=== PATIENT | male | born 1955 ===

== ENCOUNTER 2016-03-03 16:08 | Inpatient (IN) | payer BC ==
[2016-03-03 18:12] LABS: Glucose,Whole Blood 139 mg/dL (75-99)
[2016-03-03] MEDS ORDERED: NALOXONE 0.4 MG/ML 1 ML VIAL IV PRN (18:28)
[2016-03-03] MEDS ORDERED: ONDANSETRON 4 MG/2 ML VIAL IVP PRN (18:28)
[2016-03-03] MEDS ORDERED: METOCLOPRAMIDE 5 MG/ML 2 ML VIAL IVP PRN (18:28)
--- NOTE | 2016-03-03 18:35 | P.GSHP ---
History of Present Illness H&P Date: 03/03/16 Chief Complaint: Gallstone pancreatitis CHIEF COMPLAINT: Gallstone pancreatitis. HISTORY OF PRESENT ILLNESS: Margarito Crespo is a very pleasant 60-year-old gentleman who presents as transfer from [facility] in [place], [place] secondary to gallstone pancreatitis. He has history of previous myocardial infarction including cardiac stent placement. He also has a personal history of diabetes. He presents with severe epigastric abdominal pain which radiates to his back. Chemistries are consistent with gallstone pancreatitis. He also reports a strong family history of gallbladder disease in both his parents as well. Upon his initial presentation at [facility] , his white count was elevated at 9.5. His blood sugar glucose was normal at 81. His amylase was elevated at 113 and his lipase was elevated at 458. His hemoglobin A1c was moderately elevated at 11.9. Given his presentation of likely gallstone pancreatitis, general surgery has been asked for further evaluation and management. PAST MEDICAL HISTORY: 1. Depression 2. Myocardial infarction, Feb 2015. 3. Hypertensive cardiomyopathy 4. Diabetes mellitus type 2, insulin-dependent. 5. Restless leg syndrome. 6. Osteoarthritis. 7. Hypercholesterolemia. PAST SURGICAL HISTORY: 1. Cardiac catheterization with replacement of stents one year ago, February 2015 2. Corrective left foot surgery 3. Tonsillectomy and adenoidectomy 4. Shoulder surgery 5. Penile implant. He denies any abdominal surgery. MEDICATIONS: 1. Humalog 14 units t.i.d. 2. Lantus 80 units, 3. Lipitor 40 mg daily 4. Lopressor 25 mg b.i.d. 5. Nitrostat 0.4 mg as needed 6. Plavix 75 mg daily (He has not taken this medication over 2 weeks. ) 7. Requip 0.25 mg daily 8. Aspirin 81 mg daily, (He has not taken this medication over 2 weeks. ) 9. Lisinopril 2.5 mg daily 10. Metformin 500 mg b.i.d. 11. Sertraline 150 mg daily. ALLERGIES: PENICILLIN. SOCIAL HISTORY: He is . No active tobacco use. He is a former tobacco user. FAMILY HISTORY: Pertinent for gallbladder disease in both his parents. Also reports heart disease. Alzheimer's runs in his family. Father had cancer and diabetes. REVIEW OF SYSTEMS: CONSTITUTIONAL: He is at least 50+ pounds overweight. No reports of fever or chills. HEENT: No problems with vision or hearing. No dysphagia. ENDOCRINE: History of diabetes mellitus type 2, insulin dependent. No report of thyroid disorder. RESPIRATORY: Denies any dyspnea on exertion. No recent pneumonia. CARDIOVASCULAR: History of myocardial infarction with cardiac catheterization and placement of stent 02/2015. No reports of recent chest pain. GASTROINTESTINAL: Has fatty food intolerance including gastroesophageal reflux disease. MUSCULOSKELETAL: Has diffuse osteoarthritis HEMATOLOGIC: He is on antiplatelet therapy Plavix. Reports easy bruising and bleeding from Plavix and aspirin therapy. He is personally discontinued this therapy in 2 weeks. NEUROLOGICAL: No reports of stroke or seizure disorders. PSYCHIATRIC: History of depression without suicidal ideation. PHYSICAL EXAMINATION: CONSTITUTIONAL: Patient is a well-developed, pleasant male in no acute distress. VITAL SIGNS: Temperature 97.5, pulse 60, respirations 16, blood pressure 123/76, 95% oxygen saturation. HEENT: No scleral icterus. Oral mucosa is moist. Extraocular muscles intact. NECK: Supple, without lymphadenopathy. CARDIOVASCULAR: Heart regular rate and rhythm. RESPIRATORY/CHEST: No labored respirations with equal bilateral excursion. GASTROINTESTINAL/ABDOMINAL: Abdomen mild tenderness along the epigastrium. No peritonitis. Reducible one 1-cm umbilical hernia. No abdominal scars noted. MUSCULOSKELETAL: No clubbing, cyanosis or edema. NEUROLOGICAL: No focal or lateralization signs. Cranial nerves 2-12 are grossly within normal limits. PSYCHIATRIC: Alert and orientated x3. Appropriate affect. LABS FROM [facility]: White count normal at 6.9, hemoglobin normal at 13.4, MCH and MCHC low at 27.2 and 32.4 respectively, PT was slightly elevated at 12.1, INR normal at 1.1, urine analysis positive for glucose and negative for blood. Electrolytes: sodium normal at 140, potassium normal at 4.6, BUN elevated at 25, creatinine elevated at 1.6, glucose elevated at 172, AST low at 15, alkaline phosphatase and ALT were within normal limits. Total bilirubin normal at 0.7. Hemoglobin A1c elevated at 12.2. Mean average glucose of 306. Lipase reduced from 458 down to 105. Cholesterol results were all within normal limits. Triglycerides were 59. STUDIES: Ultrasound at [facility] reviewed demonstrating no large common bile duct stones. IMPRESSION: 1. Clinical history consistent with pancreatitis. 2. Family history of gallbladder disease. 3. Clinical history highly suspicious for cholelithiasis, symptomatic. 4. Coronary artery disease with previous history of cardiac stent placement. 5. Insulin dependent diabetes mellitus type 2, poorly controlled with renal nephropathy. 6. Renal insufficiency secondary to diabetes, stage 2/3. 7. Epigastric abdominal pain. 8. History of depression. PLAN: 1. I reviewed his medications whereby he has discontinued both Plavix and aspirin in 2 weeks. Benefits risks of surgical intervention with a laparoscopic cholecystectomy possible open technique were reviewed in detail with him and his for which they demonstrated understanding. 2. Pending the results of his chemistries, may defer GI consultation for ERCP. 3. He has history of poorly controlled diabetes, recommend diabetes education and sliding-scale insulin while inpatient. 4. He has BUN and creatinine of 25 and 1.6 respectively which is new as of . With the severity of his diabetes, also recommend nephrology consultation. 5. IV fluid hydration. 6. The care plan was carefully discussed with the patient and his for which they had agreed with proceeding with surgery as stated. 7. Inpatient hospitalization anticipated for 2 nights or greater. 8. DVT prophylaxis. 9. Antibiotic prophylaxis. Past Medical History - Past Family History Mother Family Medical History: Dementia Additional Family Medical History / Comment(s): PACEMAKER Father Family Medical History: Cancer, Dementia, Diabetes Mellitus, Prostate Disorder Additional Family Medical History / Comment(s): PROSTATE CANCER, HEART PROBLEMS Medications and Allergies Home Medications Medication Instructions Recorded Confirmed Type Aspirin EC [Ecotrin Low Dose] 81 mg PO DAILY 03/03/16 03/03/16 History Insulin Glargine,Hum.rec.anlog 12 unit SQ AC-TID 03/03/16 03/03/16 History [Lantus Solostar] Insulin Lispro [humaLOG Kwikpen] 80 unit SQ HS 03/03/16 03/03/16 History Lisinopril [Zestril] 2.5 mg PO DAILY 03/03/16 03/03/16 History Metoprolol Tartrate [Lopressor] 12.5 mg PO BID 03/03/16 03/03/16 History Nitroglycerin Sl Tabs [Nitrostat] 0.4 mg SUBLINGUAL Q5M PRN 03/03/16 03/03/16 History Sertraline [Zoloft] 150 mg PO DAILY 03/03/16 03/03/16 History metFORMIN HCL [Glucophage] 1,000 mg PO AC-BRKFST 03/03/16 03/03/16 History Allergies Allergy/AdvReac Type Severity Reaction Status Date / Time Penicillins Allergy Unknown Verified 03/03/16 18:36 Childhood Surgical - Exam Vital Signs Temp Pulse Resp BP Pulse Ox 97.5 F L 60 16 123/76 95 03/03/16 18:04 03/03/16 18:04 03/03/16 18:04 03/03/16 18:04 03/03/16 18:04 GENERAL: Well developed and in no acute distress. Pleasant. HEENT: No sclera icterus. Extraocular movements grossly intact. Moist buccal mucosa. Head is atraumatic, normocephalic. Hears conversational speech. No nasal drainage. NECK: Supple without lymphadenopathy. No JV distention. CHEST: Non-labored respirations and equal bilateral excursions. CARDIOVASCULAR: Regular rate and rhythm. Palpable 2+ radial pulses. ABDOMEN: Soft. Nondistended. Minimal epigastric and right upper quadrant tenderness. MUSCULOSKELETAL: No clubbing, cyanosis or edema. NEUROLOGIC: No focal or lateralizing signs. PSYCH: Appropriate affect. Alert and oriented to person, place and time. Results - Labs 03/03/16 18:54 03/03/16 18:54 Abnormal Lab Results - Last 24 Hours (Table) 03/03/16 Range/Units 18:09 POC Glucose (mg/dL) 139 H (75-99) mg/dL
[2016-03-03] MEDS ORDERED: ACETAMINOPHEN IV (For NPO) 1,000 MG in EMPTY BAG 1 BAG IVPB ONE (19:00)
[2016-03-03 19:08] LABS: Basophils # (A) 0.1 k/uL (0-0.2); Basophils % (A) 1 %; CH 27.1; CHCM 31.6; Eosinophils # (A) 0.2 k/uL (0-0.7); Eosinophils % (A) 3 %; HDW 2.62; Hypochromasia Slight; Luc # (Auto) 0.11; Luc % (Auto) 2; Lymphocytes # (A) 2.1 k/uL (1.0-4.8); Lymphocytes % (A) 29 %; MCH 26.8 pg (25.0-35.0); MCHC 31.1 g/dL (31.0-37.0); MCV 86.1 fL (80.0-100.0); Mean Platelet Volume 6.4; Monocytes # (A) 0.4 k/uL (0-1.0); Monocytes % (A) 6 %; Neutrophils # (A) 4.4 k/uL (1.3-7.7); Neutrophils % (A) 61 %; RBC 5.23 m/uL (4.30-5.90); RDW 14.8 % (11.5-15.5); WBC 7.3 k/uL (3.8-10.6)
[2016-03-03 19:27] LABS: Potassium 4.7 mmol/L (3.5-5.1); Total Bilirubin 0.6 mg/dL (0.2-1.3); Total Protein 6.6 g/dL (6.3-8.2)
[2016-03-03 23:59] LABS: Hemoglobin A1C 11.6 % (4.2-6.1)
[2016-03-04] MEDS: INSULIN LISPRO (humaLOG) 300 UNIT/3 ML VIAL SQ SCH ×3 (00:27→12:06)
[2016-03-04 00:28] LABS: Glucose,Whole Blood 194 mg/dL (75-99)
[2016-03-04] MEDS: HEPARIN SODIUM,PORCINE 5,000 UNIT/ML 1 ML VIAL SQ SCH ×4 (00:29→17:00)
[2016-03-04 06:04] LABS: Glucose,Whole Blood 145 mg/dL (75-99)
[2016-03-04 07:25] LABS: Glucose,Whole Blood 145 mg/dL (75-99)
[2016-03-04 08:59] LABS: INR 1.2 (<1.1); Prothrombin Time 11.5 sec (9.0-12.0)
[2016-03-04] MEDS ORDERED: SODIUM CHLORIDE 0.9% 1,000 ML IV SCH ×2 (09:00→17:45)
[2016-03-04 10:17] VITALS: BMI 36.3
--- NOTE | 2016-03-04 11:23 | US ---
EXAMINATION TYPE: US kidneys/renal and bladder DATE OF EXAM: 03/04/2016 11:09 AM COMPARISON: NONE CLINICAL HISTORY: vinay. EXAM MEASUREMENTS: Right Kidney: 11.1 x 5.5 x 4.2 cm Left Kidney: 11.2 x 5.2 x 5.1 cm Findings: Right Kidney: lobular surface texture Left Kidney: No hydronephrosis or masses seen Bladder: there appears to be two fluid structures midline in area of bladder, there is overlying hina l partially obstructing view IMPRESSION: No hydronephrosis or nephrolithiasis. There appear to be fluid structures anterior to the bladder which could potentially be related to ove rlying dilated bowel loops correlate with pelvic CT as clinically warranted.
[2016-03-04 11:44] LABS: Appearance,Urine Clear (Clear); Bilirubin,Urine Negative (Negative); Glucose,Urine (UA) Trace (Negative); Ketones,Urine Negative (Negative); Leukocyte Esterase,Urine Negative (Negative); Nitrite,Urine Negative (Negative); PH, Urine 5.5 (5.0-8.0); Protein,Urine Negative (Negative); UA Billing (MACRO vs. MICRO) CHEM; Urobilinogen,Urine <2.0 mg/dL (<2.0)
[2016-03-04 12:05] LABS: Glucose,Whole Blood 124 mg/dL (75-99)
--- NOTE | 2016-03-04 12:17 | P.NPCON ---
History of Present Illness - Reason for Consult acute renal failure - History of Present Illness Reason for consultation: Acute kidney injury History of present illness: Patient is a 60-year-old male seen in renal consultation for acute kidney injury. Unclear as to what his baseline renal function is. Creatinine is 1.5 to as of yesterday. Patient denies any prior history of kidney disease. He presented to the hospital with abdominal pain that started about a week ago. He's also been having intermittent nausea and vomiting along with loose bowel movements since then. His oral intake has been minimal. He scheduled for cholecystectomy today. He denies any chest pain or shortness of breath. No lower extremity edema. Admits to good urine output. No hematuria or dysuria. Currently receiving IV hydration. His father did have chronic kidney disease was disease prior to starting dialysis. Unclear as to etiology. Denies use of NSAIDs at home. No other complaints at this time. Vital signs are stable. General: The patient appeared well nourished and normally developed. HEENT: Head exam is unremarkable. Neck is without jugular venous distension. LUNGS: Lungs are clear to auscultation and percussion. Breath sounds decreased. HEART: Rate and Rhythm are regular. First and second heart sounds normal. No murmurs, rubs or gallops. ABDOMEN: Abdominal exam reveals normal bowel sounds. Non-tender and non- distended. No evidence of peritonitis. EXTREMITITES: No clubbing, cyanosis, or edema. Past Medical History Past Medical History: Diabetes Mellitus, Hyperlipidemia, Hypertension, Myocardial Infarction ([place]), Sleep Apnea/CPAP/BIPAP Additional Past Medical History / Comment(s): NOT TAKING ANY MEDS FOR CHOLESTEROL, MIGRAINES IN PAST Last Myocardial Infarction Date:: 2015 History of Any Multi-Drug Resistant Organisms: None Reported Past Surgical History: Heart Catheterization With Stent, Tonsillectomy Additional Past Surgical History / Comment(s): PENILE IMPLANT, LT FOOT 3RD TOE CORRECTIVE SX, LT SHOULDER SX, Additional Past Anesthesia/Blood Transfusion Reaction / Comment(s): CLAUSTERPHOBIA Date of Last Stent Placement:: UNK Past Psychological History: No Psychological Hx Reported Smoking Status: Former smoker Past Alcohol Use History: None Reported Additional Past Alcohol Use History / Comment(s): STARTED SMOKING AGE 16, SMOKED 2.5 PPD, QUIT AGE 41 Past Drug Use History: Marijuana Additional Drug Use History / Comment(s): IN THE 1970S SED MARIJUANA - Past Family History Mother Family Medical History: Dementia Additional Family Medical History / Comment(s): PACEMAKER Father Family Medical History: Cancer, Dementia, Diabetes Mellitus, Prostate Disorder Additional Family Medical History / Comment(s): PROSTATE CANCER, HEART PROBLEMS Medications and Allergies Home Medications Medication Instructions Recorded Confirmed Type Aspirin EC [Ecotrin Low Dose] 81 mg PO DAILY 03/03/16 03/03/16 History Insulin Glargine,Hum.rec.anlog 12 unit SQ AC-TID 03/03/16 03/03/16 History [Lantus Solostar] Insulin Lispro [humaLOG Kwikpen] 80 unit SQ HS 03/03/16 03/03/16 History Lisinopril [Zestril] 2.5 mg PO DAILY 03/03/16 03/03/16 History Metoprolol Tartrate [Lopressor] 12.5 mg PO BID 03/03/16 03/03/16 History Nitroglycerin Sl Tabs [Nitrostat] 0.4 mg SUBLINGUAL Q5M PRN 03/03/16 03/03/16 History Sertraline [Zoloft] 150 mg PO DAILY 03/03/16 03/03/16 History metFORMIN HCL [Glucophage] 1,000 mg PO AC-BRKFST 03/03/16 03/03/16 History Allergies Allergy/AdvReac Type Severity Reaction Status Date / Time Penicillins Allergy Unknown Verified 03/03/16 18:36 Childhood Physical Exam Vitals: Vital Signs Temp Pulse Resp BP Pulse Ox 03/04/16 09:25 62 17 03/04/16 07:00 97.2 F L 62 17 106/64 96 03/04/16 02:00 97.6 F 63 18 105/64 94 L 03/03/16 20:00 98 F 57 L 18 138/78 96 03/03/16 18:04 97.5 F L 60 16 123/76 95 Intake and Output 03/03/16 03/04/16 03/04/16 22:59 06:59 14:59 Intake Total 100 Balance 100 Intake: IV 100 ACETAMINOPHEN IV (For NPO 100 ) 1,000 mg In Empty Bag 1 bag @ 400 mls/hr IVPB ONCE ONE Rx#:[id number] Other: Voiding Method Toilet Toilet # Voids 1 Weight 102.058 kg 102.058 kg Patient Weight 03/05/16 06:59 Weight 102.058 kg Results - Lab Results Most recent lab results Calcium 9.0 mg/dL (8.4-10.2) 03/03/16 18:54 03/03/16 18:54 03/03/16 18:54 Assessment and Plan Plan: Assessment: #1. Nonoliguric acute kidney injury mostly prerenal in nature secondary to intravascular volume depletion from vomiting and diarrhea. Creatinine 1.52 on admission yesterday. Unclear as to what his baseline renal function is. #2. Rule out chronic kidney disease. No evidence of hydronephrosis on renal ultrasound. Urinalysis quite benign. #3. Acute pancreatitis. #4. Insulin-dependent diabetes mellitus. Plan: Continue normal saline to run at 75 mL an hour. Scheduled for cholecystectomy today. Advance diet per surgical recommendations. Avoid nephrotoxic agents and hypotensive episodes. Repeat electrolytes in the morning. I advised him to monitor his blood sugars more closely upon discharge. Goal A1c less than 7%. Thank you for the consultation. I will continue to follow the patient with you during his hospital stay.
--- NOTE | 2016-03-04 12:39 | P.HPADDEND ---
H&P Addendum H&P Addendum Date: 03/04/16 Benefits and risks of laparoscopic ostectomy was reviewed. Patient chemistries improved. We'll proceed with laparoscopic cholecystectomy possible open technique.
[2016-03-04] MEDS ORDERED: NITROGLYCERIN SL TABS 0.4 MG TAB SUBLINGUAL PRN (12:59)
[2016-03-04] MEDS: SODIUM CHLORIDE 0.9% 1,000 ML IV SCH (15:02)
[2016-03-04 15:24] VITALS: RESP 16
[2016-03-04] MEDS ORDERED: IV FLUID CONTINUATION 1,000 ML IV ONE (15:28)
[2016-03-04 15:47] LABS: Glucose,Whole Blood 111 mg/dL (75-99)
[2016-03-04] MEDS ORDERED: ONDANSETRON 4 MG/2 ML VIAL IVP ONE (15:47)
[2016-03-04] MEDS ORDERED: DEXAMETHASONE SOD PHOS (MDV) 100 MG/10 ML VIAL IV ONE (15:48)
[2016-03-04] MEDS ORDERED: ceFAZolin 2 GM in SODIUM CHLORIDE 0.9% 100 ML IVPB ONE (16:00)
[2016-03-04] MEDS ORDERED: fentaNYL (PF) 50 MCG/ML 2 ML AMP ONE (17:22)
[2016-03-04] MEDS ORDERED: GLYCOPYRROLATE 0.2 MG/ML 2 ML VIAL ONE (17:22)
[2016-03-04] MEDS ORDERED: KETOROLAC 30 MG/ML 1 ML VIAL ONE (17:22)
[2016-03-04] MEDS ORDERED: MIDAZOLAM 2 MG/2 ML VIAL ONE (17:22)
[2016-03-04] MEDS ORDERED: LIDOCAINE 1% INJ 10MG/ML (20 ML MDV) ONE (17:22)
[2016-03-04] MEDS ORDERED: NEOSTIGMINE 1 MG/ML 10 ML VIAL ONE (17:22)
[2016-03-04] MEDS ORDERED: ROCURONIUM BROMIDE 10 MG/ML 10 ML VIAL IV ONE (17:22)
[2016-03-04] MEDS ORDERED: PROPOFOL 10 MG/ML 20 ML VIAL IV ONE (17:22)
[2016-03-04] MEDS ORDERED: SUCCINYLCHOLINE CHLORIDE 100 MG/5 ML SYR IV ONE (17:22)
[2016-03-04] MEDS ORDERED: HYDROmorphone 1 MG/ML 1 ML SYRINGE IVP PRN (17:29)
[2016-03-04] MEDS ORDERED: HYDROcodone/APAP 5-325MG 1 EACH TAB PO PRN (17:29)
[2016-03-04] MEDS ORDERED: SODIUM CHLORIDE 0.9% 100 ML with ceFAZolin 2,000 MG IV ONE ×2 (17:30)
[2016-03-04] MEDS ORDERED: LACTATED RINGERS 1,000 ML IV ONE (17:32)
[2016-03-04] MEDS ORDERED: BUPIVACAIN-EPI 0.25%-1:200,000 30 ML VIAL SQ ONE ×2 (17:33→17:39)
[2016-03-04] MEDS ORDERED: ACETAMINOPHEN IV (For NPO) 1,000 MG in EMPTY BAG 1 BAG IVPB ONE (18:00)
--- NOTE | 2016-03-04 18:12 | P.OP ---
Date of Procedure: 03/04/16 Description of Procedure: SURGEON: MARGARET KERR MD MAGAZINE SUPERVISOR: None. PREOPERATIVE DIAGNOSES: 1. Chronic Cholecystitis. 2. Diabetes type 2 insulin-dependent, poorly controlled. 3. History of gallstone pancreatitis. 4. Coronary artery disease. 5. History of cardiac catheterization with placement of cardiac stents. 6. Hypertensive cardiomyopathy. 7. Obstructive sleep apnea. 8. Diabetic nephropathy with chronic kidney disease, stage II. 9. Morbid obesity. 10. Body mass index 36.3. 11. Hypercholesterolemia. 12. Fatty liver disease. 13. Hepatomegaly. POSTOPERATIVE DIAGNOSES: 1. Chronic Cholecystitis. 2. Diabetes type 2 insulin-dependent, poorly controlled. 3. History of gallstone pancreatitis. 4. Coronary artery disease. 5. History of cardiac catheterization with placement of cardiac stents. 6. Hypertensive cardiomyopathy. 7. Obstructive sleep apnea. 8. Diabetic nephropathy with chronic kidney disease, stage II. 9. Morbid obesity. 10. Body mass index 36.3. 11. Hypercholesterolemia. 12. Fatty liver disease. 13. Hepatomegaly. OPERATION: 1. Laparoscopic cholecystectomy ANESTHESIA: General with 30 mL 0.25% Marcaine with epinephrine. ESTIMATED BLOOD LOSS: 5 mL. SPECIMENS REMOVED: Gallbladder. COMPLICATIONS: None. INDICATIONS: The patient is a 60-year-old male who presents with gallstone pancreatitis. He presented as a transfer from [facility]. As his liver enzymes including pancreatitis resolved, surgical intervention was described. Surgical intervention with a laparoscopic cholecystectomy was described at length including injury to the biliary tree, bleeding, infection, need for further surgery. Informed consent was obtained. DESCRIPTION OF THE PROCEDURE: The patient was brought to the operating room, laid in supine position. After general induction, the abdomen was prepped and draped in a standard sterile fashion. Prior to incision, a timeout protocol was confirmed with surgical team regarding patient's name, procedure to be performed including preoperative medications for which he had received heparin 5000 units subcutaneously as well as bilateral SCDs for DVT prophylaxis. A transverse 5 mm incision was made above the umbilicus and off to the right of the midline. Please note the skin was localized prior to incision. A 0 degree 5-mm laparoscopic trocar entry was performed and entered into the peritoneal cavity. Diagnostic laparoscopy confirmed no injury to bowel, viscera or mesentery. The liver serosa was completely unremarkable. Next, two 5 mm trocars were placed along the right costal margin followed by a 11 mm port at the left upper quadrant. The patient was placed in steep reverse Trendelenburg position with the right side up. The gallbladder fundus was retracted over the dome of the liver. Initial attention was brought to the infundibulum which was gently retracted in the inferior lateral approach. Using a Kittner, the cystic duct including the cystic artery was carefully skeletonized. Using a large clip cell biology scientist 2 clips were placed proximally, and 2 clip was placed distally along the cystic duct and then cut. Again care was taken to avoid any injury to the biliary tree as the common bile duct was clearly visualized during this portion of dissection. Next, the cystic artery was clipped twice proximally, once distally and then cauterized. The cystic structures were divided using a Sonicision. Electro-Bovie cautery was used to remove the gallbladder from the hepatic fossa without decompression of the gallbladder. Hemostasis was checked and found to be adequate. The gallbladder was removed from the abdominal cavity using an Endo Catch bag and passed off for further pathological analysis. All instruments and pneumoperitoneum were removed from the abdominal cavity. The fascial defect was less than 8 mm for the 11-mm port site. The rest of incisions were reapproximated using 4-0 Monocryl in an interrupted subcuticular fashion. A total of 30 mL of 0.25% Marcaine with epinephrine was infiltrated to all wounds for postop analgesia. Dermabond was applied to the skin. At the end of the procedure, needle, sponge, and instrument count was verified correct by surgical appliances salesperson. The patient had tolerated the procedure well and was taken to postanesthesia care unit in stable condition. Intraoperative films were discussed and reviewed with the patient's family who were pleased with the level of care. FINDINGS: 1. Chronic cholecystitis. 2. Umbilical hernia, 1 cm reducible. 3. No inguinal hernias identified. 4. Fatty liver disease with hepatomegaly.
[2016-03-04 18:13] VITALS: TEMP 98.2
[2016-03-04 18:22] LABS: Glucose,Whole Blood 197 mg/dL (75-99)
--- NOTE | 2016-03-04 18:30 | P.DS ---
Providers Date of admission: 03/03/16 17:54 Expected date of discharge: 03/04/16 Attending physician: Rosa Elena Ann Consults: 03/04/16 08:21 Consult Physician Routine Consulting Provider: Savanna Bonilla Consult Reason/Comments: Diabetic Renal insufficiency Do you want consulting provider notified?: Yes Primary care physician: Jef Han - Discharge Diagnosis(es) (1) Gallstone pancreatitis Current Visit: Yes Status: Acute (2) Hypercholesteremia Current Visit: Yes Status: Chronic (3) Coronary artery disease Current Visit: Yes Status: Chronic (4) S/P cardiac catheterization Current Visit: Yes Status: Chronic (5) Morbid obesity Current Visit: Yes Status: Chronic (6) BMI 36.0-36.9,adult Current Visit: Yes Status: Chronic (7) Type 2 diabetes mellitus with nephropathy Current Visit: Yes Status: Chronic (8) Diabetes type 2, uncontrolled Current Visit: Yes Status: Chronic (9) Hypertensive cardiomyopathy Current Visit: Yes Status: Chronic (10) Sleep apnea, obstructive Current Visit: Yes Status: Chronic Hospital Course: POSTOPERATIVE DIAGNOSES: 1. Chronic Cholecystitis. 2. Diabetes type 2 insulin-dependent, poorly controlled. 3. History of gallstone pancreatitis. 4. Coronary artery disease. 5. History of cardiac catheterization with placement of cardiac stents. 6. Hypertensive cardiomyopathy. 7. Obstructive sleep apnea. 8. Diabetic nephropathy with chronic kidney disease, stage II. 9. Morbid obesity. 10. Body mass index 36.3. 11. Hypercholesterolemia. 12. Fatty liver disease. 13. Hepatomegaly. COURSE: The patient is a 60-year-old male who presents with gallstone pancreatitis. He presented as a transfer from [facility]. As his liver enzymes including pancreatitis resolved, surgical intervention was described. During his hospitalization, diabetic education was performed. Additionally nephrology consultation was obtained secondary to renal insufficiency. Postoperatively, he tolerated diet. His pain was well-controlled. Discharge instructions were reviewed with him and his family. Follow-up in the office tomorrow. Pertinent Studies: Ultrasound of the kidney demonstrated no abnormalities. Procedures: OPERATION: 1. Laparoscopic cholecystectomy Patient Condition at Discharge: Stable Plan - Discharge Summary New Discharge Prescriptions: Hydrocodone/Acetaminophen [[place] 5-325] 1 - 2 each PO Q6HR PRN #30 tab PRN Reason: Pain Discharge Medication List Aspirin EC [Ecotrin Low Dose] 81 mg PO DAILY 03/03/16 [History] Insulin Glargine,Hum.rec.anlog [Lantus Solostar] 12 unit SQ AC-TID 03/03/16 [ History] Insulin Lispro [humaLOG Kwikpen] 80 unit SQ HS 03/03/16 [History] Lisinopril [Zestril] 2.5 mg PO DAILY 03/03/16 [History] Metoprolol Tartrate [Lopressor] 12.5 mg PO BID 03/03/16 [History] Nitroglycerin Sl Tabs [Nitrostat] 0.4 mg SUBLINGUAL Q5M PRN 03/03/16 [History] Sertraline [Zoloft] 150 mg PO DAILY 03/03/16 [History] metFORMIN HCL [Glucophage] 1,000 mg PO AC-BRKFST 03/03/16 [History] Hydrocodone/Acetaminophen [[place] 5-325] 1 - 2 each PO Q6HR PRN #30 tab 03/04/16 [Rx] Follow up Appointment(s)/Referral(s): Rosa Elena Ann MD [STAFF PHYSICIAN] - 03/05/16 10:15 am ([place] [facility]) Patient Instructions/Handouts: *Surgery [facility] - Laparoscopic Cholecystectomy Discharge Instructions, Low Fat Diet (DC) Activity/Diet/Wound Care/Special Instructions: No lifting over 4 pounds in 2 weeks. Please follow-up at [place] office tomorrow. Low-fat diet. May shower tomorrow. Discharge Disposition: HOME SELF-CARE
[2016-03-04 18:45] VITALS: BP 130/69; PULSE 78
[2016-03-04] MEDS ORDERED: METOPROLOL TARTRATE 12.5 MG TAB PO SCH (21:00)
[2016-03-05] MEDS ORDERED: PANTOPRAZOLE 40 MG/10 ML VIAL IV SCH (09:00)
[2016-03-05] MEDS ORDERED: SERTRALINE 50 MG TAB PO SCH (09:00)
== END 2016-03-04 20:11 | disposition home or self-care (01) | DRG 418 ==
LOC: 3SUR 17:54
PROVIDERS: ADMIT Surgery Plastic and Reconstructive Surgery; ATTEND Surgery Plastic and Reconstructive Surgery
PROC: 0FT44ZZ Resection of Gallbladder, Percutaneous Endoscopic Approach (ICD-10-PCS; principal; 2016-03-04 07:30)
DX: K85.10 Biliary acute pancreatitis without necrosis or infection (principal); K80.10 Calculus of gallbladder with chronic cholecystitis without obstruction; N17.9 Acute kidney failure, unspecified; I43 Cardiomyopathy in diseases classified elsewhere; E11.21 Type 2 diabetes mellitus with diabetic nephropathy; I13.10 Hypertensive heart and chronic kidney disease without heart failure, with stage 1 through stage 4 chronic kidney disease, or unspecified chronic kidney disease; E11.65 Type 2 diabetes mellitus with hyperglycemia; E66.01 Morbid (severe) obesity due to excess calories; E11.22 Type 2 diabetes mellitus with diabetic chronic kidney disease; E78.00 Pure hypercholesterolemia, unspecified; E78.5 Hyperlipidemia, unspecified; E86.9 Volume depletion, unspecified; G25.81 Restless legs syndrome; G47.33 Obstructive sleep apnea (adult) (pediatric); I25.10 Atherosclerotic heart disease of native coronary artery without angina pectoris; I25.2 Old myocardial infarction; K42.9 Umbilical hernia without obstruction or gangrene; K76.0 Fatty (change of) liver, not elsewhere classified; M19.90 Unspecified osteoarthritis, unspecified site; N18.2 Chronic kidney disease, stage 2 (mild); F32.9 Major depressive disorder, single episode, unspecified; R16.0 Hepatomegaly, not elsewhere classified; F40.240 Claustrophobia; G43.909 Migraine, unspecified, not intractable, without status migrainosus; Z68.36 Body mass index [BMI] 36.0-36.9, adult; Z87.891 Personal history of nicotine dependence; Z95.5 Presence of coronary angioplasty implant and graft; Z79.4 Long term (current) use of insulin; Z79.02 Long term (current) use of antithrombotics/antiplatelets; Z79.82 Long term (current) use of aspirin; Z79.899 Other long term (current) drug therapy; Z88.0 Allergy status to penicillin
CPT/HCPCS: 76770; 80053; 81003; 83036; 83690; 85025; 85610; 86850; 86900; 86901; 88304; 93005

== ENCOUNTER 2016-03-10 11:47 | Inpatient (IN) | payer BC ==
--- NOTE | 2016-03-10 13:31 | ED ---
Abdominal Pain HPI - General Chief Complaint: Abdominal Pain Stated Complaint: abdominal Pain Time Seen by Provider: 03/10/16 13:08 Source: EMS, RN notes reviewed Mode of arrival: EMS - History of Present Illness Initial Comments: Patient is a 61-year-old man, transferred here from [facility], he had gone there earlier today for right upper quadrant abdominal pain. The patient relates that 6 days ago he had laparoscopic cholecystectomy performed here by Dr. Pandya. He states that the surgery seemed to go well and he was doing well until this morning. He states that he had only used his prescription analgesics for 2 days following the surgery. The patient states that he woke this morning with the pain, it was in the right upper quadrant and a little in the right flank. It is a sharp and aching pain, constant, and is worse if he presses over it. He has not noted any relieving factors other than the medication he was given at the other hospital. The patient denies associated symptoms, including no fevers or chills, nausea or vomiting, change in urination, or change in bowel movements. MD Complaint: abdominal pain Onset/Timin -: hour(s) Location: RUQ, R flank Severity: severe Quality: aching Consistency: constant Improves With: medication Worsens With: nothing Context: recent surgery/procedure Associated Symptoms: denies other symptoms - Related Data Home Medications Medication Instructions Recorded Confirmed Aspirin EC [Ecotrin Low Dose] 81 mg PO DAILY 03/03/16 03/10/16 Insulin Glargine,Hum.rec.anlog 12 unit SQ AC-TID 03/03/16 03/10/16 [Lantus Solostar] Insulin Lispro [humaLOG Kwikpen] 80 unit SQ HS 03/03/16 03/10/16 Lisinopril [Zestril] 2.5 mg PO DAILY 03/03/16 03/10/16 Metoprolol Tartrate [Lopressor] 12.5 mg PO BID 03/03/16 03/10/16 Nitroglycerin Sl Tabs [Nitrostat] 0.4 mg SUBLINGUAL Q5M PRN 03/03/16 03/10/16 Sertraline [Zoloft] 150 mg PO DAILY 03/03/16 03/10/16 metFORMIN HCL [Glucophage] 1,000 mg PO AC-BRKFST 03/03/16 03/10/16 Hydrocodone/Acetaminophen [[place] 1 - 2 tab PO Q6HR PRN 03/10/16 03/10/16 5-325] Allergies Allergy/AdvReac Type Severity Reaction Status Date / Time Penicillins Allergy Unknown Verified 03/10/16 12:13 Childhood Review of Systems ROS Statement: Those systems with pertinent positive or pertinent negative responses have been documented in the HPI. ROS Other: All systems not noted in ROS Statement are negative. Constitutional: Denies: fever, chills Respiratory: Denies: cough, dyspnea Cardiovascular: Denies: chest pain, edema Gastrointestinal: Reports: abdominal pain. Denies: nausea, vomiting, diarrhea, constipation, melena, hematochezia Genitourinary: Denies: dysuria, hematuria Musculoskeletal: Denies: back pain Skin: Denies: rash Neurological: Denies: headache Past Medical History Past Medical History: Diabetes Mellitus, Hyperlipidemia, Hypertension, Myocardial Infarction ([place]), Sleep Apnea/CPAP/BIPAP Additional Past Medical History / Comment(s): NOT TAKING ANY MEDS FOR CHOLESTEROL, MIGRAINES IN PAST Last Myocardial Infarction Date:: 2015 History of Any Multi-Drug Resistant Organisms: None Reported Past Surgical History: Heart Catheterization With Stent, Tonsillectomy Additional Past Surgical History / Comment(s): PENILE IMPLANT, LT FOOT 3RD TOE CORRECTIVE SX, LT SHOULDER SX, Additional Past Anesthesia/Blood Transfusion Reaction / Comment(s): CLAUSTERPHOBIA Date of Last Stent Placement:: UNK Past Psychological History: No Psychological Hx Reported Smoking Status: Former smoker Past Alcohol Use History: None Reported Additional Past Alcohol Use History / Comment(s): STARTED SMOKING AGE 16, SMOKED 2.5 PPD, QUIT AGE 41 Past Drug Use History: Marijuana Additional Drug Use History / Comment(s): IN THE 1970'S SED MARIJUANA - Past Family History Mother Family Medical History: Dementia Additional Family Medical History / Comment(s): PACEMAKER Father Family Medical History: Cancer, Dementia, Diabetes Mellitus, Prostate Disorder Additional Family Medical History / Comment(s): PROSTATE CANCER, HEART PROBLEMS General Exam General appearance: alert, in no apparent distress, obese Head exam: Present: atraumatic, normocephalic Eye exam: Present: normal appearance. Absent: scleral icterus, conjunctival injection ENT exam: Present: normal oropharynx Neck exam: Present: normal inspection Respiratory exam: Present: normal lung sounds bilaterally. Absent: respiratory distress, wheezes, rales, rhonchi, stridor Cardiovascular Exam: Present: regular rate, normal rhythm, normal heart sounds. Absent: systolic murmur, diastolic murmur, rubs, gallop GI/Abdominal exam: Present: soft, tenderness (There is mild right upper quadrant tenderness without rebound or guarding), normal bowel sounds, other ( The patient's surgical incisions have a normal appearance. They are clean dry and intact without any abnormal erythema or warmth.). Absent: distended, guarding, rebound, rigid, mass, pulsatile mass, hernia Extremities exam: Present: normal inspection, normal capillary refill. Absent: pedal edema, calf tenderness Back exam: Present: normal inspection. Absent: CVA tenderness (R), CVA tenderness (L) Neurological exam: Present: alert Skin exam: Present: warm, dry, intact, normal color. Absent: rash Course Vital Signs 03/10/16 03/10/16 11:55 14:33 Temperature 97.6 F 97.2 F L Pulse Rate 80 65 Respiratory 16 16 Rate Blood Pressure 103/60 112/56 O2 Sat by Pulse 95 94 L Oximetry Medical Decision Making - Lab Data Result diagrams: 03/10/16 14:10 03/10/16 14:10 Lab Results 03/10/16 03/10/16 03/10/16 Range/Units 14:10 14:10 14:17 WBC 8.2 (3.8-10.6) k/uL RBC 5.06 (4.30-5.90) m/uL Hgb 13.7 (13.0-17.5) gm/dL Hct 43.1 (39.0-53.0) % MCV 85.2 (80.0-100.0) fL MCH 27.1 (25.0-35.0) pg MCHC 31.8 (31.0-37.0) g/dL RDW 14.8 (11.5-15.5) % Plt Count 242 (150-450) k/uL Neutrophils % 55 % Lymphocytes % 33 % Monocytes % 8 % Eosinophils % 1 % Basophils % 1 % Neutrophils # 4.5 (1.3-7.7) k/uL Lymphocytes # 2.7 (1.0-4.8) k/uL Monocytes # 0.7 (0-1.0) k/uL Eosinophils # 0.1 (0-0.7) k/uL Basophils # 0.1 (0-0.2) k/uL Sodium 144 (137-145) mmol/L Potassium 4.5 (3.5-5.1) mmol/L Chloride 110 H (98-107) mmol/L Carbon Dioxide 23 (22-30) mmol/L Anion Gap 11 mmol/L BUN 27 H (9-20) mg/dL Creatinine 1.50 H (0.66-1.25) mg/dL Est GFR (MDRD) Af Amer 58 (>60 ml/min/1.73 sqM) Est GFR (MDRD) Non-Af 48 (>60 ml/min/1.73 sqM) Glucose 67 L (74-99) mg/dL Calcium 8.9 (8.4-10.2) mg/dL Total Bilirubin 0.5 (0.2-1.3) mg/dL AST 141 H (17-59) U/L ALT 113 H (21-72) U/L Alkaline Phosphatase 87 (38-126) U/L Total Protein 6.5 (6.3-8.2) g/dL Albumin 3.7 (3.5-5.0) g/dL Amylase 48 (30-110) U/L Lipase 59 (23-300) U/L Urine Color Yellow Urine Appearance Clear (Clear) Urine pH 5.0 (5.0-8.0) Ur Specific [place] 1.011 (1.001-1.035) Urine Protein Negative (Negative) Urine Glucose (UA) Negative (Negative) Urine Ketones Negative (Negative) Urine Blood Negative (Negative) Urine Nitrate Negative (Negative) Urine Bilirubin Negative (Negative) Urine Urobilinogen <2.0 (<2.0) mg/dL Ur Leukocyte Esterase Negative (Negative) Disposition Clinical Impression: Abdominal pain, Elevated transaminase level Disposition: ADMITTED IP TO THIS HOSP Condition: Good
[2016-03-10] MEDS ORDERED: HYDROmorphone 1 MG/ML 1 ML SYRINGE IVP STA (13:34)
[2016-03-10 14:30] LABS: Basophils # (A) 0.1 k/uL (0-0.2); Basophils % (A) 1 %; CH 27.5; CHCM 32.5; Eosinophils # (A) 0.1 k/uL (0-0.7); Eosinophils % (A) 1 %; HCT 43.1 % (39.0-53.0); HDW 2.66; HGB 13.7 gm/dL (13.0-17.5); Luc # (Auto) 0.14; Luc % (Auto) 2; Lymphocytes # (A) 2.7 k/uL (1.0-4.8); Lymphocytes % (A) 33 %; MCH 27.1 pg (25.0-35.0); MCHC 31.8 g/dL (31.0-37.0); MCV 85.2 fL (80.0-100.0); Mean Platelet Volume 7.9; Monocytes # (A) 0.7 k/uL (0-1.0); Monocytes % (A) 8 %; Neutrophils # (A) 4.5 k/uL (1.3-7.7); Neutrophils % (A) 55 %; RBC 5.06 m/uL (4.30-5.90); RDW 14.8 % (11.5-15.5); WBC 8.2 k/uL (3.8-10.6)
[2016-03-10 14:45] LABS: Calcium 8.9 mg/dL (8.4-10.2); Potassium 4.5 mmol/L (3.5-5.1); Total Bilirubin 0.5 mg/dL (0.2-1.3); Total Protein 6.5 g/dL (6.3-8.2)
[2016-03-10 15:04] LABS: Appearance,Urine Clear (Clear); Bilirubin,Urine Negative (Negative); Glucose,Urine (UA) Negative (Negative); Ketones,Urine Negative (Negative); Leukocyte Esterase,Urine Negative (Negative); Nitrite,Urine Negative (Negative); Protein,Urine Negative (Negative); Specific Gravity,Urine 1.011 (1.001-1.035); UA Billing (MACRO vs. MICRO) CHEM; Urobilinogen,Urine <2.0 mg/dL (<2.0)
[2016-03-10] MEDS ORDERED: NITROGLYCERIN SL TABS 0.4 MG TAB SUBLINGUAL PRN (15:41)
--- NOTE | 2016-03-10 15:44 | P.PN ---
Progress Note - Text Patient seen and evaluated. Please see full dictated H&P. Patient has new right upper quadrant abdominal pain which he states is related to surgery. Reports his pain started early this morning at 4:30. He narcotics to control this pain. Recommend admission for evaluation for retained gallstone versus biloma.
[2016-03-10] MEDS ORDERED: SODIUM CHLORIDE 0.9% 1,000 ML IV STA (16:17)
--- NOTE | 2016-03-10 18:08 | P.GSHP ---
History of Present Illness H&P Date: 03/10/16 Chief Complaint: Right upper quadrant abdominal pain HISTORY OF PRESENT ILLNESS: Margarito Crespo is a very pleasant 60-year-old gentleman who is 1 week out from a gallstone pancreatitis treated with laparoscopic cholecystectomy which has been uneventful. In fact, he was seen in the office within 24-48 hours and reported complete resolution of any abdominal pain. He has been tolerating food. In fact had fried fish. Last night he did have cheese and crackers. He was awoken from bed this morning at 4:30 after developing acute onset right upper quadrant abdominal pain which he states is unrelated to his recent incisions. He denies any fevers or chills. He presented initially to [facility] and has been transferred and to [facility]. He is requiring Dilaudid to control his pain. A recent CT of the abdomen and pelvis demonstrated postsurgical changes however he has new elevated AST and ALT. His total bilirubin was unremarkable. As result of his presentation, he has been admitted. Separately, his blood sugars are under much better control as his blood sugars are averaging between 60s to 80s. PAST MEDICAL HISTORY: 1. Depression 2. Myocardial infarction, Feb 2015. 3. Hypertensive cardiomyopathy 4. Diabetes mellitus type 2, insulin-dependent. 5. Restless leg syndrome. 6. Osteoarthritis. 7. Hypercholesterolemia. PAST SURGICAL HISTORY: 1. Cardiac catheterization with replacement of stents one year ago, February 2015 2. Corrective left foot surgery 3. Tonsillectomy and adenoidectomy 4. Shoulder surgery 5. Penile implant. 6. Laparoscopic cholecystectomy, 03/04/2016 MEDICATIONS: 1. Humalog 14 units t.i.d. 2. Lantus 80 units, 3. Lipitor 40 mg daily 4. Lopressor 25 mg b.i.d. 5. Nitrostat 0.4 mg as needed 6. Plavix 75 mg daily (He has discontinued) 7. Requip 0.25 mg daily 8. Aspirin 81 mg daily, (He has discontinued) 9. Lisinopril 2.5 mg daily 10. Metformin 500 mg b.i.d. 11. Sertraline 150 mg daily. ALLERGIES: PENICILLIN. SOCIAL HISTORY: He is . No active tobacco use. He is a former tobacco user. FAMILY HISTORY: Pertinent for gallbladder disease in both his parents. Also reports heart disease. Alzheimer's runs in his family. Father had cancer and diabetes. REVIEW OF SYSTEMS: CONSTITUTIONAL: He is at least 50+ pounds overweight. No reports of fever or chills. HEENT: No problems with vision or hearing. No dysphagia. ENDOCRINE: History of diabetes mellitus type 2, insulin dependent. No report of thyroid disorder. RESPIRATORY: Denies any dyspnea on exertion. No recent pneumonia. CARDIOVASCULAR: History of myocardial infarction with cardiac catheterization and placement of stent 02/2015. No reports of recent chest pain. GASTROINTESTINAL: Recent cholecystectomy for gallstone pancreatitis and chronic cholecystitis. Denies any change in bowel habits. MUSCULOSKELETAL: Has diffuse osteoarthritis. HEMATOLOGIC: He noted takes Plavix or aspirin for easy bruising and bleeding. NEUROLOGICAL: No reports of stroke or seizure disorders. PSYCHIATRIC: History of depression without suicidal ideation. PHYSICAL EXAMINATION: VITAL SIGNS: Temperature 98.4, pulse 66, respirations 16, blood pressure 144/83, 96% oxygen saturation. GENERAL: Patient is a well-developed, pleasant male in no acute distress. HEENT: No scleral icterus. Oral mucosa is moist. Extraocular muscles intact. NECK: Supple, without lymphadenopathy. CARDIOVASCULAR: Heart regular rate and rhythm. RESPIRATORY/CHEST: No labored respirations with equal bilateral excursion. GASTROINTESTINAL/ABDOMINAL: Incisions clean dry and intact and granulating. No signs of infection or cellulitis. Mild tenderness along the right upper quadrant. Reducible pre-existing umbilical hernia. MUSCULOSKELETAL: No clubbing, cyanosis or edema. NEUROLOGICAL: No focal or lateralization signs. Cranial nerves 2-12 are grossly within normal limits. PSYCHIATRIC: Alert and orientated x3. Appropriate affect. STUDIES: CT of the abdomen and pelvis reviewed demonstrating no acute findings of the right upper quadrant. IMPRESSION: 1. Previous history of gallstone pancreatitis. 2. Right upper quadrant abdominal pain, acute. 3. Elevated AST. 4. Coronary artery disease with previous history of cardiac stent placement. 5. Insulin dependent diabetes mellitus type 2, poorly controlled with renal nephropathy. 6. Renal insufficiency secondary to diabetes, stage 2/3. 7. Elevated ALT. 8. History of depression. PLAN: 1. Will obtain a HIDA scan as he has elevated AST and ALT. A biloma cannot be excluded at this time. 2. Heart healthy carbohydrate consistent diet. 3. Repeat chemistries. May benefit from gastrointestinal evaluation showed liver chemistries worsen. 4. Admission for possible post cholecystectomy syndrome. 5. DVT prophylaxis. 6. Incentive spirometry. 7. Sliding scale insulin. Past Medical History Past Medical History: Diabetes Mellitus, Hyperlipidemia, Hypertension, Myocardial Infarction ([place]), Sleep Apnea/CPAP/BIPAP Additional Past Medical History / Comment(s): NOT TAKING ANY MEDS FOR CHOLESTEROL, MIGRAINES IN PAST Last Myocardial Infarction Date:: 2015 History of Any Multi-Drug Resistant Organisms: None Reported Past Surgical History: Heart Catheterization With Stent, Tonsillectomy Additional Past Surgical History / Comment(s): PENILE IMPLANT, LT FOOT 3RD TOE CORRECTIVE SX, LT SHOULDER SX, Additional Past Anesthesia/Blood Transfusion Reaction / Comment(s): CLAUSTERPHOBIA Date of Last Stent Placement:: UNK Past Psychological History: No Psychological Hx Reported Smoking Status: Former smoker Past Alcohol Use History: None Reported Additional Past Alcohol Use History / Comment(s): STARTED SMOKING AGE 16, SMOKED 2.5 PPD, QUIT AGE 41 Past Drug Use History: Marijuana Additional Drug Use History / Comment(s): IN THE 1970S SED MARIJUANA - Past Family History Mother Family Medical History: Dementia Additional Family Medical History / Comment(s): PACEMAKER Father Family Medical History: Cancer, Dementia, Diabetes Mellitus, Prostate Disorder Additional Family Medical History / Comment(s): PROSTATE CANCER, HEART PROBLEMS Medications and Allergies Home Medications Medication Instructions Recorded Confirmed Type Aspirin EC [Ecotrin Low Dose] 81 mg PO DAILY 03/03/16 03/10/16 History Insulin Glargine,Hum.rec.anlog 12 unit SQ AC-TID 03/03/16 03/10/16 History [Lantus Solostar] Insulin Lispro [humaLOG Kwikpen] 80 unit SQ HS 03/03/16 03/10/16 History Lisinopril [Zestril] 2.5 mg PO DAILY 03/03/16 03/10/16 History Metoprolol Tartrate [Lopressor] 12.5 mg PO BID 03/03/16 03/10/16 History Nitroglycerin Sl Tabs [Nitrostat] 0.4 mg SUBLINGUAL Q5M PRN 03/03/16 03/10/16 History Sertraline [Zoloft] 150 mg PO DAILY 03/03/16 03/10/16 History metFORMIN HCL [Glucophage] 1,000 mg PO AC-BRKFST 03/03/16 03/10/16 History Hydrocodone/Acetaminophen [[place] 1 - 2 tab PO Q6HR PRN 03/10/16 03/10/16 History 5-325] Allergies Allergy/AdvReac Type Severity Reaction Status Date / Time Penicillins Allergy Unknown Verified 03/10/16 12:13 Childhood Surgical - Exam Vital Signs Temp Pulse Resp BP Pulse Ox 97.6 F 80 16 103/60 95 03/10/16 11:55 03/10/16 11:55 03/10/16 11:55 03/10/16 11:55 03/10/16 11:55 Results - Labs 03/10/16 14:10 03/10/16 14:10 Abnormal Lab Results - Last 24 Hours (Table) 03/10/16 Range/Units 14:10 Chloride 110 H (98-107) mmol/L BUN 27 H (9-20) mg/dL Creatinine 1.50 H (0.66-1.25) mg/dL Glucose 67 L (74-99) mg/dL AST 141 H (17-59) U/L ALT 113 H (21-72) U/L Diabetes panel 03/10/16 Range/Units 14:10 Sodium 144 (137-145) mmol/L Potassium 4.5 (3.5-5.1) mmol/L Chloride 110 H (98-107) mmol/L Carbon Dioxide 23 (22-30) mmol/L BUN 27 H (9-20) mg/dL Creatinine 1.50 H (0.66-1.25) mg/dL Glucose 67 L (74-99) mg/dL Calcium 8.9 (8.4-10.2) mg/dL AST 141 H (17-59) U/L ALT 113 H (21-72) U/L Alkaline Phosphatase 87 (38-126) U/L Total Protein 6.5 (6.3-8.2) g/dL Albumin 3.7 (3.5-5.0) g/dL Calcium panel 03/10/16 Range/Units 14:10 Calcium 8.9 (8.4-10.2) mg/dL Albumin 3.7 (3.5-5.0) g/dL Pituitary panel 03/10/16 Range/Units 14:10 Sodium 144 (137-145) mmol/L Potassium 4.5 (3.5-5.1) mmol/L Chloride 110 H (98-107) mmol/L Carbon Dioxide 23 (22-30) mmol/L BUN 27 H (9-20) mg/dL Creatinine 1.50 H (0.66-1.25) mg/dL Glucose 67 L (74-99) mg/dL Calcium 8.9 (8.4-10.2) mg/dL Adrenal panel 03/10/16 Range/Units 14:10 Sodium 144 (137-145) mmol/L Potassium 4.5 (3.5-5.1) mmol/L Chloride 110 H (98-107) mmol/L Carbon Dioxide 23 (22-30) mmol/L BUN 27 H (9-20) mg/dL Creatinine 1.50 H (0.66-1.25) mg/dL Glucose 67 L (74-99) mg/dL Calcium 8.9 (8.4-10.2) mg/dL Total Bilirubin 0.5 (0.2-1.3) mg/dL AST 141 H (17-59) U/L ALT 113 H (21-72) U/L Alkaline Phosphatase 87 (38-126) U/L Total Protein 6.5 (6.3-8.2) g/dL Albumin 3.7 (3.5-5.0) g/dL
[2016-03-10] MEDS: HYDROcodone/APAP 5-325MG 1 EACH TAB PO PRN (18:10)
[2016-03-10] MEDS ORDERED: ONDANSETRON 4 MG/2 ML VIAL IVP PRN (18:11)
[2016-03-10] MEDS: METOPROLOL TARTRATE 12.5 MG TAB PO SCH (21:22)
--- NOTE | 2016-03-10 22:23 | NM ---
EXAMINATION TYPE: NM hepatobiliary wo EF DATE OF EXAM: 03/10/2016 8:00 PM COMPARISON: CT from outside institution dated 03/10/2016. HISTORY: Right upper quadrant abdominal pain cholecystectomy. Evaluate for bile leak. TECHNIQUE: After the intravenous administration of 5.5 mCi Tc 99m Mebrofenin hepatobiliary scintigrap hy is performed. Immediate images post injection. FINDINGS: There is normal excretion of radiotracer into the bowel at 14 minutes. No radiotracer collection is s een within the right upper quadrant to indicate biloma. No bile leak is seen extravasating into the p roxane. There is reflux into the stomach on the images 41 minutes through 51 minutes. IMPRESSION: Normal postcholecystectomy HIDA scan with no evidence of bile leak.
[2016-03-10 23:30] LABS: Hemoglobin A1C 10.8 % (4.2-6.1)
[2016-03-11] MEDS: HYDROcodone/APAP 5-325MG 1 EACH TAB PO PRN (06:55)
[2016-03-11] MEDS ORDERED: metFORMIN 500 MG TAB PO SCH (07:30)
[2016-03-11 07:46] VITALS: PULSE 69; TEMP 98.3
[2016-03-11] MEDS ORDERED: SERTRALINE 50 MG TAB PO SCH (09:00)
[2016-03-11] MEDS ORDERED: ASPIRIN 81 MG CHEW PO SCH (09:00)
[2016-03-11] MEDS ORDERED: LISINOPRIL 2.5 MG TAB PO SCH (09:00)
[2016-03-11 09:06] LABS: ALT 100 U/L (21-72); AST 60 U/L (17-59); Alkaline Phosphatase 95 U/L (38-126); Amylase 34 U/L (30-110); Anion Gap 10 mmol/L; Blood Urea Nitrogen 20 mg/dL (9-20); Calcium 8.7 mg/dL (8.4-10.2); Carbon Dioxide 21 mmol/L (22-30); Chloride 110 mmol/L (98-107); Glucose 89 mg/dL (74-99); Non-African American GFR(MDRD) 52 (>60 ml/min/1.73 sqM); Potassium 5.1 mmol/L (3.5-5.1); Sodium 141 mmol/L (137-145); Total Bilirubin 0.8 mg/dL (0.2-1.3); Total Protein 6.2 g/dL (6.3-8.2)
[2016-03-11] MEDS: INSULIN LISPRO (humaLOG) 300 UNIT/3 ML VIAL SQ SCH ×3 (09:23→17:58)
[2016-03-11] MEDS: METOPROLOL TARTRATE 12.5 MG TAB PO SCH ×2 (09:23→20:11)
[2016-03-11 12:31] LABS: Glucose,Whole Blood 132 mg/dL (75-99)
[2016-03-11 14:36] VITALS: BMI 35.5
--- NOTE | 2016-03-11 14:46 | P.PN ---
Subjective Pleasant 61-year-old gentleman being seen on rounds this morning just returned from having a HIDA scan as part of the workup for right upper quadrant abdominal pain the hydroscan showed normal postcholecystectomy with no evidence of a bile leak patient states the abdominal discomfort is improving. Patient is 1 week out from a gallstone pink [place] treated with a lap scopic cholecystectomy. Patient's postop course had been uneventful up until the current episode of developing right upper quadrant pain. A recent CAT scan of the abdomen pelvis showed no postsurgical changes. On admission it was noted an elevated AST and ALT the total bilirubin was unremarkable the labs were reviewed this morning the AST is 60 down from 141 on the admission the ALT 100 alkaline alk phos 95 hemoglobin A1c 10.8 and total bilirubin 0.8 Objective - Vital Signs Vital signs: Vital Signs Temp 98.3 F 03/11/16 07:00 Pulse 69 03/11/16 07:00 Resp 15 03/11/16 07:00 BP 109/65 03/11/16 07:00 Pulse Ox 93 L 03/11/16 07:00 Intake & Output 03/10/16 03/11/16 03/11/16 18:59 06:59 18:59 Intake Total 1100 800 Balance 1100 800 Weight 99.79 kg Intake: IV 1100 800 Sodium Chloride 0.9% 1, 1100 800 000 ml @ 100 mls/hr IV . Q10H STA Rx#:[id number] Other: Voiding Method Toilet Toilet # Voids 1 1 - Exam Physical exam 61-year-old gentleman resting comfortably in bed states abdominal pain has improved Lungs essentially clear on room air no shortness of breath Heart S1-S2 audible regular denying chest pain Abdomen soft not distended slight tenderness to the right upper quadrant no nausea no vomiting no frequent stooling no difficulty in urinating no redness at the surgical sites Extremities no edema noted - Labs CBC & Chem 7: 03/10/16 14:10 03/11/16 07:47 Labs: Abnormal Lab Results - Last 24 Hours (Table) 03/11/16 03/11/16 Range/Units 07:47 12:13 Chloride 110 H (98-107) mmol/L Carbon Dioxide 21 L (22-30) mmol/L Creatinine 1.39 H (0.66-1.25) mg/dL POC Glucose (mg/dL) 132 H (75-99) mg/dL AST 60 H (17-59) U/L ALT 100 H (21-72) U/L Total Protein 6.2 L (6.3-8.2) g/dL Albumin 3.4 L (3.5-5.0) g/dL Assessment and Plan Plan: Impression Present on admission right upper quadrant abdominal pain acute Previous history of gallstone pancreatitis. 2. Right upper quadrant abdominal pain, acute. 3. Elevated AST. 4. Coronary artery disease with previous history of cardiac stent placement. 5. Insulin dependent diabetes mellitus type 2, poorly controlled hemoglobin A1c 10.8 with renal nephropathy. 6. Renal insufficiency secondary to diabetes, stage 2/3. 7. Elevated ALT. 8. History of depression. Plan Repeat labs in the morning Pain control Continue postop surgical care Further recommendations pending Monitor blood sugar address as indicated The above dictated assessment and findings were discussed with Dr. Ann. Impression and the plan of care have been dictated as directed. Mayi Goins nurse practitioner acting as a scribe for Dr. Muñiz
[2016-03-11 17:27] LABS: Glucose,Whole Blood 139 mg/dL (75-99)
[2016-03-11 18:14] VITALS: BP 122/75; RESP 14
--- NOTE | 2016-03-11 20:24 | P.PN ---
Progress Note - Text Patient seen and evaluated. Abdominal pain completely resolved over the past 12 hours. He is no longer requiring pain medicines. Patient likely passed a gallstone which is now resolved. Studies has been unremarkable. Discharge instructions reviewed.
--- NOTE | 2016-03-11 20:26 | P.PN ---
Progress Note - Text To Whom It May Concern: Margarito Crespo under my Gen. surgery care. He was hospitalized from 03/10/2016to . He may return to work 03/17/2016. Sincerely, Rosa Elena Ann MD, FACS, FICS
--- NOTE | 2016-03-24 07:50 | P.DS ---
Providers Date of admission: 03/10/16 15:40 Expected date of discharge: 03/11/16 Attending physician: Rosa Elena Ann Primary care physician: eJf Han - Discharge Diagnosis(es) (1) Status post laparoscopic cholecystectomy Status: Chronic (2) Retained gallstones following laparoscopic cholecystectomy Status: Acute (3) Gallstone pancreatitis Status: Chronic (4) BMI 36.0-36.9,adult Status: Chronic (5) Coronary artery disease Status: Chronic (6) Diabetes type 2, uncontrolled Status: Chronic (7) Hypercholesteremia Status: Chronic (8) Hypertensive cardiomyopathy Status: Chronic (9) Morbid obesity Status: Chronic (10) S/P cardiac catheterization Status: Chronic (11) Sleep apnea, obstructive Status: Chronic (12) Type 2 diabetes mellitus with nephropathy Status: Chronic Hospital Course: HISTORY OF PRESENT ILLNESS: Margarito Crespo is a very pleasant 60-year-old gentleman who is 1 week out from a gallstone pancreatitis treated with laparoscopic cholecystectomy which was uneventful. In fact, he was seen in the office within 24-48 hours of his operation and reported complete resolution of any abdominal pain. He has been tolerating diet. In fact had fried fish. Last night he did have cheese and crackers. He was awoken from bed this yesterday morning at 4:30 after developing acute onset right upper quadrant abdominal pain which he states is unrelated to his recent incisions. He denies any fevers or chills. He presented initially to [facility] and has been transferred to [facility] as per report of the transferring hospital, his pain was uncontrolled. Since admission, his liver enzymes had improved. His abdominal pain had improved without requiring additional oral or IV narcotics in the last 8 hrs. Phenomenon was consistent with retained biliary stone which he had passed. Prior to discharge, he is tolerating diet. His pain had resolved. Patient will follow-up in the office. Pertinent Studies: HIDA - demonstrates no biloma. Procedures: None. Patient Condition at Discharge: Good Plan - Discharge Summary Discharge Medication List Aspirin EC [Ecotrin Low Dose] 81 mg PO DAILY 03/03/16 [History] Insulin Glargine,Hum.rec.anlog [Lantus Solostar] 12 unit SQ AC-TID 03/03/16 [ History] Insulin Lispro [humaLOG Kwikpen] 80 unit SQ HS 03/03/16 [History] Lisinopril [Zestril] 2.5 mg PO DAILY 03/03/16 [History] Metoprolol Tartrate [Lopressor] 12.5 mg PO BID 03/03/16 [History] Nitroglycerin Sl Tabs [Nitrostat] 0.4 mg SUBLINGUAL Q5M PRN 03/03/16 [History] Sertraline [Zoloft] 150 mg PO DAILY 03/03/16 [History] metFORMIN HCL [Glucophage] 1,000 mg PO AC-BRKFST 03/03/16 [History] Hydrocodone/Acetaminophen [[place] 5-325] 1 - 2 tab PO Q6HR PRN 03/10/16 [History] Follow up Appointment(s)/Referral(s): Rosa Elena Ann MD [STAFF PHYSICIAN] - 04/08/16 (At [facility]) Jef Han MD [Primary Care Provider] - 1-2 days Patient Instructions/Handouts: Laparoscopic Cholecystectomy (DC), Acute Abdominal Pain (DC) Discharge Disposition: HOME SELF-CARE
== END 2016-03-11 21:09 | disposition home or self-care (01) | DRG 394 ==
LOC: EC 11:47 → 5MS5E 15:40
PROVIDERS: ADMIT Surgery Plastic and Reconstructive Surgery; ATTEND Surgery Plastic and Reconstructive Surgery
DX: K91.86 Retained cholelithiasis following cholecystectomy (principal); I43 Cardiomyopathy in diseases classified elsewhere; I11.9 Hypertensive heart disease without heart failure; E11.21 Type 2 diabetes mellitus with diabetic nephropathy; I25.10 Atherosclerotic heart disease of native coronary artery without angina pectoris; E11.65 Type 2 diabetes mellitus with hyperglycemia; F32.9 Major depressive disorder, single episode, unspecified; I25.2 Old myocardial infarction; E78.5 Hyperlipidemia, unspecified; G47.30 Sleep apnea, unspecified; M19.90 Unspecified osteoarthritis, unspecified site; E78.00 Pure hypercholesterolemia, unspecified; G25.81 Restless legs syndrome; N28.9 Disorder of kidney and ureter, unspecified; Z87.891 Personal history of nicotine dependence; Z95.5 Presence of coronary angioplasty implant and graft; Z79.84 Long term (current) use of oral hypoglycemic drugs; Z79.82 Long term (current) use of aspirin; Z79.4 Long term (current) use of insulin; Z79.899 Other long term (current) drug therapy
CPT/HCPCS: 36415; 78226; 80053; 81003; 82150; 83036; 83690; 85025; 96374; 99285

== ENCOUNTER → 2016-05-21 | Outpatient (CLI) | payer BC ==
[2016-05-21 16:34] VITALS: BP 123/80; PULSE 80; RESP 16; TEMP 98.4; BMI 38.2
--- NOTE | 2016-06-17 22:37 | P.PN ---
Progress Note - Text DATE OF CONSULTATION: 05/21/2016 CHIEF COMPLAINT: Initial bariatric assessment. HISTORY OF PRESENT ILLNESS: Mragarito Crespo is a 61-year-old gentleman with history of poorly controlled diabetes, including coronary artery disease requiring cardiac catheterization with stent placement as well as obstructive sleep apnea, hypertensive heart disease, osteoarthritis of the lower back and hips. At his height of 5 feet 5-3/4 inches frame his ideal body weight is 149 pounds. He comes in weighing 235 pounds. He is 86 pounds overweight. Body mass index is 38.2. He comes from a long-standing family history of morbid obesity including a son who is 500+ pounds overweight. He has been on structured weight loss diet, including diabetes education for over 4 months to improve his diabetes. He reports his hemoglobin A1c had been easily been 15 to 16 barely a year ago. Now he comes in for surgical solutions for correction of his reflux disease including of his diabetes. He has been a diabetic, well over 5+ years and is insulin dependent. PAST MEDICAL HISTORY: 1. Poorly controlled insulin-dependent type 2 diabetic. 2. Depression. 3. Coronary artery disease. 4. Hypertensive heart disease. 5. Stage III renal insufficiency. 6. Chronic lower back pain. 7. Osteoarthritis of bilateral hips. 8. Osteoarthritis of bilateral knees. 9. Obstructive sleep apnea. 10. Previous history of myocardial infarction. 11. Migraine headaches. PAST SURGICAL HISTORY: 1. Cholecystectomy. 2. Heart catheterization with stent placement within the last year. 3. Tonsillectomy. 4. Penile implant. 5. Corrective surgery of his left third toe. 6. Left shoulder surgery. MEDICATIONS: 1. Glucophage. 2. Zoloft. 3. Nitroglycerin. 4. Lopressor. 5. Zestril. 6. Humalog. 7. Lantus. 8. [place]. 9. Aspirin. 10. Plavix. ALLERGIES: PENICILLIN. SOCIAL HISTORY: Former tobacco user. He is . FAMILY HISTORY: Significant for morbid obesity including coronary artery disease. REVIEW OF SYSTEMS: CONSTITUTIONAL: He is 86 pounds overweight. [place] body weight is 149 pounds. Present body mass index of 38.2. HEENT: Wears glasses. Denies any nasal bleeding. No reports of dysphagia. ENDOCRINE: Poorly controlled diabetes type 2. Denies any known thyroid disorders. CARDIOVASCULAR: Recent history of myocardial infarction in the last 1 to 2 years. Also had cardiac stent. Has intermittent angina. RESPIRATORY: Has obstructive sleep apnea, including CPAP machine. No recent pneumonia. GASTROINTESTINAL: Reports gastroesophageal reflux disease. Denies any change in bowel habits. Recent removal of his gallbladder within the last 2 months. MUSCULOSKELETAL: Has osteoarthritis of the lower back, hips and knees. NEURO: No reports of stroke or seizure disorders. PSYCH: Has depression without suicidal ideation. Has claustrophobia. HEMATOLOGIC: Takes antiplatelet Plavix. No reports of easy bruising or bleeding. PHYSICAL EXAM: VITAL SIGNS: 98.4, 80, 16, 123/80, 5 foot 5-3/4 inches, 235 pounds. Body mass index 38.2. GENERAL: Well-developed pleasant male in no acute distress. HEENT: No scleral icterus. Extraocular movements grossly intact. Moist buccal mucosa. NECK: Supple without lymphadenopathy. CHEST: Nonlabored respirations. Equal bilateral excursions. CARDIOVASCULAR: Regular rate and rhythm. ABDOMEN: Soft, nontender, nondistended. MUSCULOSKELETAL: No clubbing, cyanosis or edema. NEURO: No focal or lateralizing signs. PSYCH: Appropriate affect. Alert and oriented to person, place, and time. LABS: Previous bariatric metabolic panel was reviewed demonstrating hemoglobin was normal at 13.7. Chloride was elevated at 110. Carbon dioxide was elevated at 21. Creatinine elevated 1.39. Glucose was elevated at 139. Hemoglobin A1c was elevated at 10.8. AST and ALT were elevated at 60 and 100 respectively. Total protein was low at 6.2. Albumin was low at 3.4. Thyroid-stimulating hormone was within normal limits from an outside institution. ASSESSMENT: 1. Morbid obesity due to excess calories. 2. Body mass index of 38.2. 3. Poorly controlled type 2 diabetes, insulin-dependent. 4. History of obstructive sleep apnea. 5. Coronary artery disease. 6. Hypertensive heart disease. 7. Stage III renal nephropathy secondary to diabetes. 8. Depression. 9. Osteoarthritis of the lower back. PLAN: 1. His diabetes and hemoglobin A1c is poorly controlled. Goal hemoglobin A1c is less than 10. I recommend strict dietary classes for diabetes and potentially endocrine evaluation. 2. [place] bariat[facility] surgery collaborative data have been reviewed in detail, including options between a band, sleeve and Sara-en-Y gastric bypass. For correction of his underlying gastroesophageal reflux disease including diabetes resolution he has elected for Sara-en-Y gastric bypass. 3. Will need medical risk assessment; however, he had recent surgery for which he had done fairly well. 4. Also recommend psych assessment per insurance guidelines. 5. Goal hemoglobin A1c of preferably less than 10 is advised. He will need close monitoring including dietary classes. Thank you for this kind consultation.
== END | disposition home or self-care (01) ==
LOC: BARWHC3 15:07
PROVIDERS: ATTEND Surgery Plastic and Reconstructive Surgery
DX: Z01.818 Encounter for other preprocedural examination (principal); E66.01 Morbid (severe) obesity due to excess calories; Z68.38 Body mass index [BMI] 38.0-38.9, adult; E11.65 Type 2 diabetes mellitus with hyperglycemia; Z79.4 Long term (current) use of insulin; G47.33 Obstructive sleep apnea (adult) (pediatric); I25.10 Atherosclerotic heart disease of native coronary artery without angina pectoris; I11.9 Hypertensive heart disease without heart failure; E11.21 Type 2 diabetes mellitus with diabetic nephropathy; N18.3 Chronic kidney disease, stage 3 (moderate); F32.9 Major depressive disorder, single episode, unspecified; M47.896 Other spondylosis, lumbar region; Z79.899 Other long term (current) drug therapy; Z88.0 Allergy status to penicillin; Z72.0 Tobacco use; I25.2 Old myocardial infarction; Z95.5 Presence of coronary angioplasty implant and graft; Z98.890 Other specified postprocedural states
CPT/HCPCS: 99201

== ENCOUNTER 2018-09-15 10:05 | Day surgery (SDC) | payer BC ==
[2018-09-15] MEDS ORDERED: LIDOCAINE 1% 20 ML VIAL (10MG/ML) FOR IV START INTRADERMA PRN (10:38)
[2018-09-15] MEDS ORDERED: LACTATED RINGERS 1,000 ML IV SCH (10:38)
[2018-09-15 10:44] VITALS: TEMP 98.4
[2018-09-15 10:50] LABS: Glucose,Whole Blood 199 mg/dL (75-99)
--- NOTE | 2018-09-15 10:50 | P.GSHP ---
History of Present Illness H&P Date: 09/15/18 CHIEF COMPLAINT: Colon screen HISTORY OF PRESENT ILLNESS: The patient is a 63-year-old male who presents for colon screen. Lower endoscopy was offered for further evaluation and management. PAST MEDICAL HISTORY: Please see list. PAST SURGICAL HISTORY: Please see list. MEDICATIONS: Please see list. ALLERGIES: Please see list. SOCIAL HISTORY: No illicit drug use FAMILY HISTORY: No reports of Crohn disease or ulcerative colitis. REVIEW OF ORGAN SYSTEMS: CONSTITUTIONAL: No reports of fevers or chills. PHYSICAL EXAM: VITAL SIGNS: Stable GENERAL: Well-developed pleasant in no acute distress. HEENT: No scleral icterus. Extraocular movements grossly intact. Moist buccal mucosa. NECK: Supple without lymphadenopathy. CHEST: Unlabored respirations. Equal bilateral excursions. CARDIOVASCULAR: Regular rate and rhythm. Distal 2+ pulses. ABDOMEN: Soft, nontender, nondistended. MUSCULOSKELETAL: No clubbing, cyanosis, or edema. ASSESSMENT: 1. Colon screen. PLAN: 1. Recommend proceeding with a lower endoscopy Past Medical History Past Medical History: Diabetes Mellitus, Hyperlipidemia, Hypertension, Myocardial Infarction ([place]), Sleep Apnea/CPAP/BIPAP Additional Past Medical History / Comment(s): NOT TAKING ANY MEDS FOR CHOLESTEROL, MIGRAINES IN PAST Last Myocardial Infarction Date:: 2015 History of Any Multi-Drug Resistant Organisms: None Reported Past Surgical History: Cholecystectomy, Heart Catheterization With Stent, Tonsillectomy Additional Past Surgical History / Comment(s): PENILE IMPLANT, LT FOOT 3RD TOE CORRECTIVE SX, LT SHOULDER SX, Additional Past Anesthesia/Blood Transfusion Reaction / Comment(s): CLAUSTERPHOBIA Date of Last Stent Placement:: UNK Smoking Status: Former smoker - Past Family History Mother Family Medical History: Dementia Additional Family Medical History / Comment(s): PACEMAKER Father Family Medical History: Cancer, Dementia, Diabetes Mellitus, Prostate Disorder Additional Family Medical History / Comment(s): PROSTATE CANCER, HEART PROBLEMS Medications and Allergies Home Medications Medication Instructions Recorded Confirmed Type Aspirin EC [Ecotrin Low Dose] 81 mg PO DAILY 03/03/16 09/15/18 History Insulin Glargine,Hum.rec.anlog 80 unit SQ HS 03/03/16 09/15/18 History [Lantus Solostar] Insulin Lispro [humaLOG Kwikpen] 12 unit SQ AC-TID 03/03/16 09/15/18 History Lisinopril [Zestril] 2.5 mg PO DAILY 03/03/16 09/15/18 History Metoprolol Tartrate [Lopressor] 12.5 mg PO BID 03/03/16 09/15/18 History Nitroglycerin Sl Tabs [Nitrostat] 0.4 mg SUBLINGUAL Q5M PRN 03/03/16 09/15/18 History Sertraline [Zoloft] 150 mg PO DAILY 03/03/16 09/15/18 History metFORMIN HCL [Glucophage] 1,500 mg PO AC-BRKFST 03/03/16 09/15/18 History Hydrocodone/Acetaminophen [[place] 1 - 2 tab PO Q6HR PRN 03/10/16 09/15/18 History 5-325] Clopidogrel [Plavix] 75 mg PO DAILY 05/21/16 09/15/18 History Allergies Allergy/AdvReac Type Severity Reaction Status Date / Time Penicillins Allergy Unknown Verified 05/21/16 16:13 Childhood Surgical - Exam Vital Signs Temp Pulse Resp BP Pulse Ox 98.4 F 62 17 138/87 97 09/15/18 10:43 09/15/18 10:43 09/15/18 10:43 09/15/18 10:43 09/15/18 10:43
[2018-09-15] MEDS ORDERED: PROPOFOL 10 MG/ML 20 ML VIAL IV ONE (11:57)
--- NOTE | 2018-09-15 12:26 | P.PCN ---
Date of Procedure: 09/15/18 Description of Procedure: PREOPERATIVE DIAGNOSIS: Colonoscopy screening, high risk Personal history of colon polyps POSTOPERATIVE DIAGNOSIS: Colonoscopy screening, high risk Personal history of colon polyps Hepatic flexure adenomas OPERATION: Colonoscopy to the ileocecal valve and appendiceal orifice. Colonoscopy with polypectomy using cold forceps biopsy, hepatic flexure SURGEON: Rosa Elena Ann MD. ANESTHESIA: MAC. INDICATIONS: The patient is a 63-year-old male who presents for colonoscopy screening. Last colonoscopy in 5 years. Benefits and risks were described and informed consent was obtained. DESCRIPTION OF PROCEDURE: The patient had undergone Suprep. He had been brought into the operating room and laid in the left lateral decubitus position. After adequate intravenous sedation, the rectum was examined with 2% lidocaine jelly. The prostate was unremarkable. No external hemorrhoids were encountered. The rectal tone was within normal limits. No lesions were palpated in the rectal vault. An Olympus colonoscope was advanced until the ileocecal valve and appendiceal orifice were clearly viewed. The prep was excellent with clear visualization of the mucosal folds. The scope was removed with visualization of each mucosal fold. No scattered diverticulosis was encountered. At the hepatic flexure, a 3 mm and 4 mm colon adenoma were removed using cold forceps. No evidence of focal colitis was found. Retroflexion of the scope demonstrated no internal hemorrhoids. The colon was desufflated. The patient had tolerated the procedure well. Withdrawal time was over 6 minutes. FINDINGS: [place] preparation quality scale 1 (1-5) No internal hemorrhoids, grade 1 No external prolapsed hemorrhoids. No arteriovenous malformations. No sigmoid diverticulosis. At the hepatic flexure, a 3 mm and 4 mm colon adenoma were removed using cold forceps. No focal colitis. RECOMMENDATIONS: Lower endoscopy in 3 years, 2021 Plan - Discharge Summary New Discharge Prescriptions: No Action Nitroglycerin Sl Tabs [Nitrostat] 0.4 mg SUBLINGUAL Q5M PRN PRN Reason: Chest Pain metFORMIN HCL [Glucophage] 1,500 mg PO AC-BRKFST Sertraline [Zoloft] 150 mg PO DAILY Metoprolol Tartrate [Lopressor] 12.5 mg PO BID Insulin Glargine,Hum.rec.anlog [Lantus Solostar] 80 unit SQ HS Aspirin EC [Ecotrin Low Dose] 81 mg PO DAILY Insulin Lispro [humaLOG Kwikpen] 12 unit SQ AC-TID Lisinopril [Zestril] 2.5 mg PO DAILY Hydrocodone/Acetaminophen [[place] 5-325] 1 - 2 tab PO Q6HR PRN PRN Reason: Pain Clopidogrel [Plavix] 75 mg PO DAILY Discharge Medication List Aspirin EC [Ecotrin Low Dose] 81 mg PO DAILY 03/03/16 [History] Insulin Glargine,Hum.rec.anlog [Lantus Solostar] 80 unit SQ HS 03/03/16 [History] Insulin Lispro [humaLOG Kwikpen] 12 unit SQ AC-TID 03/03/16 [History] Lisinopril [Zestril] 2.5 mg PO DAILY 03/03/16 [History] Metoprolol Tartrate [Lopressor] 12.5 mg PO BID 03/03/16 [History] Nitroglycerin Sl Tabs [Nitrostat] 0.4 mg SUBLINGUAL Q5M PRN 03/03/16 [History] Sertraline [Zoloft] 150 mg PO DAILY 03/03/16 [History] metFORMIN HCL [Glucophage] 1,500 mg PO AC-BRKFST 03/03/16 [History] Hydrocodone/Acetaminophen [[place] 5-325] 1 - 2 tab PO Q6HR PRN 03/10/16 [History] Clopidogrel [Plavix] 75 mg PO DAILY 05/21/16 [History] Follow up Appointment(s)/Referral(s): Rosa Elena Ann MD [STAFF PHYSICIAN] - As Needed Patient Instructions/Handouts: Colorectal Polyps (DC) Activity/Diet/Wound Care/Special Instructions: Repeat colonoscopy 3 years, 2021. Start Plavix 09/18/2018 Discharge Disposition: HOME SELF-CARE
[2018-09-15 12:34] VITALS: RESP 16
[2018-09-15 12:49] LABS: Glucose,Whole Blood 171 mg/dL (75-99)
[2018-09-15 12:57] VITALS: BP 104/68; PULSE 65
== END 2018-09-15 13:10 | disposition home or self-care (01) ==
LOC: ORWHC2ENDO 10:05
PROVIDERS: ATTEND Surgery Plastic and Reconstructive Surgery
DX: Z12.11 Encounter for screening for malignant neoplasm of colon (principal); E11.9 Type 2 diabetes mellitus without complications; E78.5 Hyperlipidemia, unspecified; I10 Essential (primary) hypertension; I25.2 Old myocardial infarction; Z90.49 Acquired absence of other specified parts of digestive tract; Z95.5 Presence of coronary angioplasty implant and graft; Z87.891 Personal history of nicotine dependence; Z86.010 Personal history of colon polyps; Z79.82 Long term (current) use of aspirin; Z79.899 Other long term (current) drug therapy; Z79.4 Long term (current) use of insulin; Z88.0 Allergy status to penicillin
CPT/HCPCS: 88305; 45380; J2704

== ENCOUNTER → 2019-03-16 | Outpatient (CLI) | payer OTHER ==
--- NOTE | 2019-03-16 17:04 | XR ---
EXAMINATION TYPE: XR lumbar spine 2 or 3V DATE OF EXAM: 03/16/2019 COMPARISON: NONE HISTORY: Back pain TECHNIQUE: 3 views FINDINGS: There is almost 2 cm anterior subluxation of L5 in relation to S1. There is posterior fusio n surgery from L4 to S1. Sacroiliac joints are intact. IMPRESSION: There is a second-degree L5-S1 spondylolisthesis. No fracture seen. Posterior fusion surg jonna. The subluxation is not significantly different than the CT scan of 03/10/2016.
== END | disposition home or self-care (01) ==
LOC: RAD 16:44
PROVIDERS: ATTEND Emergency Medicine
DX: M43.17 Spondylolisthesis, lumbosacral region (principal); Z98.1 Arthrodesis status; S33.39XA Dislocation of other parts of lumbar spine and pelvis, initial encounter
CPT/HCPCS: 72100